=== PATIENT | female | born 1980 | race Two or more races ===

== ENCOUNTER 2017-08-16 20:16 | Emergency (ER) | payer SELFPAY ==
[~2017-08-16] VITALS: Ht 154.9 cm; Wt 74.8 kg
[2017-08-16] MEDS ORDERED: LORAZEPAM INJ 2 MG/ML VIAL IM ONE (20:30)
--- NOTE | 2017-08-16 22:36 | NUR ---
37 Y/O FEMALE PLACED IN BED 10 C/O EXCESS ALCOHOL CONSUMPTION
--- NOTE | 2017-08-16 23:18 | NUR ---
PT RESTING COMFORTABLY. NO S/S OF DISTRESS NOTED.
--- NOTE | 2017-08-16 23:45 | NUR ---
RESTRAINTS REMOVED. PT APPEARS COMFORTABLE IN BED,
--- NOTE | 2017-08-17 00:17 | NUR ---
PT UP TO RESTROOM. AMBULATING WELL. STEADY GAIT. PT CALLED FRIEND TO PICK HER UP. PT LEFT TO LOBBY TO WAIT FOR FRIEND.
[2017-08-17 00:22] VITALS: BP 157/58
== END 2017-08-17 00:23 | disposition home or self-care (01) ==
LOC: ER 20:19
DX: F10.129 Alcohol abuse with intoxication, unspecified (principal)
CPT/HCPCS: A4606; Z7610

== ENCOUNTER 2018-09-07 12:02 | Emergency (ER) | payer OTHER ==
[~2018-09-07] VITALS: Ht 152.4 cm; Wt 65.8 kg
[2018-09-07] MEDS ORDERED: LORAZEPAM 1 MG TABLET PO ONE (12:30)
[2018-09-07] MEDS ORDERED: ACETAMINOPHEN W/ CODEINE#3 1 EA TABLET PO ONE (12:30)
[2018-09-07] MEDS ORDERED: MAG HYDROX/AL HYDROX/SIMETH 30 ML UDC PO ONE (12:30)
--- NOTE | 2018-09-07 12:33 | NUR ---
URINE COLLECTED AND SENT TO LAB.
[2018-09-07 12:35] LABS: APPEARANCE,URINE Clear (CLEAR); BILIRUBIN,URINE Negative (NEGATIVE); BLOOD, URINE Trace-lysed Ery/uL (NEGATIVE); COLOR,URINE Yellow (YELLOW); KETONES,URINE Negative (NEGATIVE); LEUKOCYTE ESTERASE ,URINE Negative (NEGATIVE); NITRITE, URINE Negative (NEGATIVE); PH,URINE 5.5 (5.0-8.0); PROTEIN,URINE Negative (NEGATIVE); UGLUCOSE Negative (NEGATIVE); UROBILINOGEN,URINE 0.2 EU/dL (0.2)
[2018-09-07] MEDS ORDERED: MAG HYDROX/AL HYDROX/SIMETH 30 ML UDC ONE (12:35)
[2018-09-07] MEDS ORDERED: ACETAMINOPHEN W/ CODEINE#3 1 EA TABLET ONE (12:36)
[2018-09-07] MEDS ORDERED: LORAZEPAM 0.5 MG TABLET ONE (12:36)
[2018-09-07 12:40] LABS: BASOPHILS # (AUTO) 0.1 /CMM (0.0-0.2); BASOPHILS % (AUTO) 0.6 % (0.0-2.0); EOSINOPHILS % (AUTO) 1.2 % (0.0-6.0); HEMATOCRIT 41 % (33-45); HEMOGLOBIN 13.6 g/dL (11.5-14.8); LYMPHOCYTES % (AUTO) 25.7 % (20.0-44.0); MEAN CORPUSCULAR HGB CONC 34 g/dl (31.0-36.0); MEAN CORPUSCULAR VOLUME 91 fL (82-100); MONOCYTES # (AUTO) 0.5 /CMM (0.1-1.30); MONOCYTES % (AUTO) 5.8 % (2.0-12.0); NEUTROPHILS # (AUTO) 5.3 /CMM (1.8-8.9); NEUTROPHILS % (AUTO) 66.7 % (43.0-81.0); PLATELET COUNT (AUTO) 367 /CMM (150-450); RED BLOOD CELL COUNT(AUTO) 4.47 MIL/uL (4.0-5.2); WHITE BLOOD COUNT (AUTO) 7.9 K/uL (4.3-11.0)
[2018-09-07 12:43] LABS: BACTERIA,URINE None seen /HPF (None Seen); SQUAMOUS EPITHELIAL CELL,UR Moderate /HPF (None Seen)
[2018-09-07 12:52] LABS: CALCIUM, SERUM 8.7 mg/dL (8.5-10.1); CARBON DIOXIDE 25 mmol/L (21-32); CHLORIDE 104 mmol/L (98-107); CREATININE 0.6 mg/dL (0.6-1.3); GLUCOSE 107 mg/dL (74-106); POTASSIUM 4.2 mmol/L (3.5-5.1); SODIUM SERUM 138 mmol/L (136-145); UREA NITROGEN, BLOOD 11 mg/dL (7-18)
[2018-09-07 12:59] LABS: ALANINE AMINOTRANSFERASE 27 U/L (12-78); ALKALINE PHOSPHATASE 62 U/L (46-116); ASPARTATE AMINOTRANSFERASE 24 U/L (15-37); BILIRUBIN,DIRECT 0.2 mg/dL (0.0-0.2); BILIRUBIN,TOTAL 0.6 mg/dL (0.2-1.0); TOTAL PROTEIN, SERUM 7.8 g/dL (6.4-8.2)
--- NOTE | 2018-09-07 13:24 | NUR ---
PT BBBS C/O ABDOMINAL PAIN X 3 DAYS, AXOX3, - SOB, H/A, N/V. - BLOODY STOOL/EMESIS,
[2018-09-07 13:52] VITALS: BP 141/74
--- NOTE | 2018-09-07 13:55 | NUR ---
Patient discharged to home in stable condition. Written and verbal after care instructions given. Patient verbalizes understanding of instruction.
== END 2018-09-07 13:56 | disposition home or self-care (01) ==
LOC: ER 12:36
DX: K29.70 Gastritis, unspecified, without bleeding (principal); F41.9 Anxiety disorder, unspecified; F10.10 Alcohol abuse, uncomplicated; Y90.9 Presence of alcohol in blood, level not specified
CPT/HCPCS: 36415; 80048-TC; 80076-TC; 81000-TC; 84484-TC; 84703-TC; 85025-TC